=== PATIENT | male | born 1950 | race Caucasian/White ===

== ENCOUNTER 2023-08-12 07:51 | Outpatient (REF) | payer MEDICARE, BC, SELFPAY | END 2023-08-12 07:52 | disposition home or self-care (01) | LOC: NFLDREF 07:51 | PROVIDERS: PCP Internal Medicine; Referring Provider Internal Medicine; Visit Provider Internal Medicine | DX: R73.03 Prediabetes (principal); E78.5 Hyperlipidemia, unspecified; R63.5 Abnormal weight gain | CPT/HCPCS: 80061; 82947; 84443 ==

== ENCOUNTER 2024-10-22 08:39 | Outpatient (CLI) | payer MEDICARE, BC, SELFPAY | END 2024-10-22 08:40 | disposition home or self-care (01) | LOC: NFLDREF 18:57 | PROVIDERS: PCP Internal Medicine; Referring Provider Internal Medicine; Visit Provider Internal Medicine | DX: E78.5 Hyperlipidemia, unspecified (principal); R73.03 Prediabetes | CPT/HCPCS: 80061; 82947 ==

== ENCOUNTER 2024-11-28 07:59 | Outpatient (CLI) | payer MEDICARE, BC, SELFPAY | END 2024-11-28 08:00 | disposition home or self-care (01) | LOC: RAD 08:02 | PROVIDERS: PCP Internal Medicine; Visit Provider Internal Medicine | DX: R13.10 Dysphagia, unspecified (principal) | CPT/HCPCS: 74221 ==

== ENCOUNTER 2024-12-10 07:45 | Outpatient (CLI) | payer MEDICARE, BC, SELFPAY ==
--- NOTE | 2024-12-10 08:46 | P.ANES_ITS ---
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
--- NOTE | 2024-12-10 08:46 | W.ANESCHARGE ---
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
--- NOTE | 2024-12-10 09:27 | W.ANESCHARGE ---
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
== END 2024-12-10 07:46 | disposition home or self-care (01) ==
LOC: OP CLINIC 07:46
PROVIDERS: PCP Internal Medicine; Visit Provider Internal Medicine
DX: R13.10 Dysphagia, unspecified (principal)
CPT/HCPCS: 00731; 43239; 88305; 99100; J2704; J3490

== ENCOUNTER 2025-01-24 07:30 | Outpatient (CLI) | payer MEDICARE, BC, SELFPAY | END 2025-01-24 07:31 | disposition home or self-care (01) | LOC: NFLDREF 01-25 01:28 | PROVIDERS: PCP Internal Medicine; Referring Provider Internal Medicine; Visit Provider Internal Medicine | DX: E78.5 Hyperlipidemia, unspecified (principal) | CPT/HCPCS: 80061 ==

== ENCOUNTER 2025-10-21 11:06 | Outpatient (CLI) | payer MEDICARE, BC, SELFPAY | END 2025-10-21 11:07 | disposition home or self-care (01) | LOC: NFLDREF 10-25 12:13 | PROVIDERS: PCP Internal Medicine; Referring Provider Internal Medicine; Visit Provider Internal Medicine | DX: R73.03 Prediabetes (principal); E78.5 Hyperlipidemia, unspecified | CPT/HCPCS: 80061; 82947 ==